=== PATIENT | female | born 2000 | race Caucasian/White ===

== ENCOUNTER 2023-12-06 10:46 | Emergency (ER) | payer BC ==
[2023-12-06 11:03] VITALS: BP 148/92; PULSE 106; RESP 17; TEMP 98.3; BMI 23.1
== END 2023-12-06 11:45 | disposition home or self-care (01) ==
LOC: JERFT 10:46
DX: S31.811A Laceration without foreign body of right buttock, initial encounter (principal); W01.0XXA Fall on same level from slipping, tripping and stumbling without subsequent striking against object, initial encounter
CPT/HCPCS: 99283-25